=== PATIENT | female | born 1955 | race Caucasian/White ===

== ENCOUNTER 2018-01-21 17:00 | Outpatient (CLI) | payer OTHER | END 2018-01-21 17:01 | disposition home or self-care (01) | LOC: SLEEPLAB 17:00 | PROVIDERS: ATTEND Physician Assistant | DX: G47.33 Obstructive sleep apnea (adult) (pediatric) (principal); R53.83 Other fatigue | CPT/HCPCS: 95806 ==

== ENCOUNTER 2018-08-31 20:30 | Outpatient (CLI) | payer OTHER, MEDICARE | END 2018-08-31 20:31 | disposition home or self-care (01) | LOC: SLEEPLAB 20:30 | PROVIDERS: ATTEND Internal Medicine | DX: G47.33 Obstructive sleep apnea (adult) (pediatric) (principal); I10 Essential (primary) hypertension; E11.9 Type 2 diabetes mellitus without complications; E66.9 Obesity, unspecified | CPT/HCPCS: 95811 ==

== ENCOUNTER 2019-02-22 11:26 | Outpatient (CLI) | payer OTHER, MEDICARE ==
--- NOTE | 2019-02-22 12:53 | RAD ---
XR Cervical Sp Com W/Obl Fl/Ex History: M miguel 48.812 cervical spondylosis Comparison: MRI cervical spine 2016 Findings: ACDF hardware at C3/C4 and C5/C6 without hardware displacement. There is also posterior spi nal fusion hardware with interconnecting rods at C3-C6. Moderate facet arthropathy at C2/C3 as well as at C6/C7 and C7/T1. Moderate narrowing of the C2/C3 disc space with 1 mm anterolisthesis and mild kyphosis. Mild increase d translation with flexion and extension. The C7/T1 disc space is obscured due to overlying shoulders. No significant osseous neural foraminal narrowing is appreciated. Impression: Mild increased translation with flexion and extension at C2/C3.
== END 2019-02-22 11:27 | disposition home or self-care (01) ==
LOC: RAD 11:26
PROVIDERS: ATTEND Anesthesiology Pain Medicine
DX: M47.812 Spondylosis without myelopathy or radiculopathy, cervical region (principal)
CPT/HCPCS: 72052

== ENCOUNTER 2022-05-19 13:42 | Outpatient (CLI) | payer MEDICARE ==
[~2022-05-19 13:42] MED LIST: Magnevist 469MG/ML 20 ML VIAL ONE
== END 2022-05-19 13:43 | disposition home or self-care (01) ==
LOC: TBSIIMAG 13:42
PROVIDERS: ATTEND Surgery
DX: M47.26 Other spondylosis with radiculopathy, lumbar region (principal); M51.16 Intervertebral disc disorders with radiculopathy, lumbar region; M54.50 Low back pain, unspecified; M43.16 Spondylolisthesis, lumbar region; Z98.890 Other specified postprocedural states
CPT/HCPCS: 72100; 72158; 82565

== ENCOUNTER 2023-03-26 10:11 | Outpatient (CLI) | payer MEDICARE | END 2023-03-26 10:12 | disposition home or self-care (01) | LOC: BICMAMMO 10:11 | PROVIDERS: ATTEND Internal Medicine | DX: Z13.820 Encounter for screening for osteoporosis (principal); M85.851 Other specified disorders of bone density and structure, right thigh; M85.852 Other specified disorders of bone density and structure, left thigh | CPT/HCPCS: 77080 ==